=== PATIENT | female | born 1990 | race Caucasian/White ===

== ENCOUNTER 2018-04-06 15:40 | Inpatient (IN) | payer BC ==
[~2018-04-06] VITALS: Ht 167.6 cm; Wt 104.3 kg
[2018-04-06] VITALS (8 sets, daily range): BP systolic 107–131; BP diastolic 58–80
[2018-04-06 16:55] LABS: HEMATOCRIT 32.5 % (36.0-46.0); HEMOGLOBIN 10.6 G/DL (11.9-15.5); MCH 26.1 PG (29.0-34.0); MCHC 32.6 G/DL (30.0-36.0); PLATELET COUNT 244 K/uL (156-360); RBC DIS.WIDTH-CV 14.3 % (11.8-14.6); RBC DIS.WIDTH-SD 41.7 % (39-53); RED BLOOD COUNT 4.06 M/uL (3.80-5.20); WHITE BLOOD COUNT 19.4 K/uL (4.1-10.2)
[2018-04-06] MEDS ORDERED: IRON325 M1 PO (17:40)
[2018-04-06] MEDS ORDERED: PRENATAL TABLE1 EAC3 PO (17:40)
[2018-04-06 17:47] LABS: ABS NEUTROPHIL COUNT 15.3; ANISOCYTOSIS 1+; BAND NEUTROPHILS 1.7 % (0-8.0); BASOPHILS 0.9 %; EOSINOPHIL ABS CT 0.2; EOSINOPHILS 0.9 % (0-5.0); LYMPHOCYTES 10.4 % (15.0-45.0); METAMYELOCYTES 4.3 %; MICROCYTOSIS 1+; MONOCYTES 4.4 % (0-9.0); PLAT.SUFFICIENCY ADEQUATE; SEG.NEUTROPHILS 77.4 % (46.0-76.0)
[2018-04-06 19:06] LABS: AMPHETAMINE NEGATIVE (500 ng/mL); BARBITURATES NEGATIVE (200 ng/mL); BENZODIAZEPINES NEGATIVE (150 ng/mL); BUPRENORPHINE NEGATIVE (10 ng/mL); COCAINE NEGATIVE (150 ng/mL); METHADONE NEGATIVE (200 ng/mL); METHAMPHETAMINE NEGATIVE (500 ng/mL); OPIATES (MORPHINE) NEGATIVE (100 ng/mL); OXYCODONE NEGATIVE (100 ng/mL); PHENCYCLIDINE NEGATIVE (25 ng/mL); PROPOXYPHENE NEGATIVE (300 ng/mL); THC CANNABINOIDS NEGATIVE (50 ng/mL); TRICYCLIC ANTIDEPRESSANTS NEGATIVE (300 ng/mL)
[2018-04-06 23:25] LABS: PLATELET COUNT 263 K/uL (156-360)
[2018-04-06 23:27] LABS: HEMATOCRIT 25.7 % (36.0-46.0); MCH 26.6 PG (29.0-34.0); MCHC 33.1 G/DL (30.0-36.0); MCV 80.3 FL (83-99); RBC DIS.WIDTH-CV 14.4 % (11.8-14.6); RBC DIS.WIDTH-SD 41.8 % (39-53)
[2018-04-06 23:28] LABS: HEMOGLOBIN 8.5 G/DL (11.9-15.5); WHITE BLOOD COUNT 32.9 K/uL (4.1-10.2)
[2018-04-07] VITALS (9 sets, daily range): BP systolic 107–123; BP diastolic 50–64
[2018-04-07 01:35] LABS: HEMATOCRIT 24.2 % (36.0-46.0); HEMOGLOBIN 7.9 G/DL (11.9-15.5); MCV 80.7 FL (83-99)
[2018-04-07 06:04] LABS: HEMATOCRIT 23.2 % (36.0-46.0); HEMOGLOBIN 7.5 G/DL (11.9-15.5); MCH 26.5 PG (29.0-34.0); MCHC 32.3 G/DL (30.0-36.0); PLATELET COUNT 218 K/uL (156-360); RBC DIS.WIDTH-CV 14.6 % (11.8-14.6); RBC DIS.WIDTH-SD 43.6 % (39-53); RED BLOOD COUNT 2.83 M/uL (3.80-5.20)
[2018-04-07 06:50] LABS: WHITE BLOOD COUNT 32.5 K/uL (4.1-10.2)
[2018-04-07 06:53] LABS: BASOPHIL (%) 0.2 % (0-1); BASOPHIL COUNT 0.1 K/uL (0-0.1); EOSINOPHIL (%) 0 % (0-5); IMMATURE GRANULOCYTE (%) 3.6 % (0.0-0.7); LYMPHOCYTE (%) 5.5 % (15-42); LYMPHOCYTE COUNT 1.8 K/uL (1.0-2.8); MONOCYTE (%) 3.3 % (3-12); MONOCYTE COUNT 1.1 K/uL (0-0.8); NEUTROPHIL (%) 87.4 % (45-76); NEUTROPHIL COUNT 28.4 K/uL (1.8-6.4); PLAT.SUFFICIENCY ADEQUATE
[2018-04-08] VITALS (19 sets, daily range): BP systolic 100–135; BP diastolic 54–74
[2018-04-08 02:17] LABS: BASOPHIL (%) 0.1 % (0-1); EOSINOPHIL (%) 0.4 % (0-5); EOSINOPHIL COUNT 0.1 K/uL (0-0.3); HEMATOCRIT 18.4 % (36.0-46.0); HEMOGLOBIN 5.9 G/DL (11.9-15.5); IMMATURE GRANULOCYTE (%) 4.2 % (0.0-0.7); LYMPHOCYTE (%) 19.8 % (15-42); LYMPHOCYTE COUNT 4.2 K/uL (1.0-2.8); MCHC 32.1 G/DL (30.0-36.0); MCV 81.1 FL (83-99); MONOCYTE (%) 7.4 % (3-12); MONOCYTE COUNT 1.6 K/uL (0-0.8); NEUTROPHIL (%) 68.1 % (45-76); NEUTROPHIL COUNT 14.6 K/uL (1.8-6.4); PLATELET COUNT 180 K/uL (156-360); RBC DIS.WIDTH-CV 14.9 % (11.8-14.6); RBC DIS.WIDTH-SD 43.2 % (39-53); RED BLOOD COUNT 2.27 M/uL (3.80-5.20); WHITE BLOOD COUNT 21.4 K/uL (4.1-10.2)
[2018-04-08 14:22] LABS: HEMATOCRIT 24.4 % (36.0-46.0); MCH 27.6 PG (29.0-34.0); MCHC 32.8 G/DL (30.0-36.0); MCV 84.1 FL (83-99); NRBC (%) 0.1 /100 WBC (0-0); PLATELET COUNT 204 K/uL (156-360); RBC DIS.WIDTH-SD 45.6 % (39-53); WHITE BLOOD COUNT 21.7 K/uL (4.1-10.2)
[2018-04-08 22:17] LABS: HEMATOCRIT 23.4 % (36.0-46.0); HEMOGLOBIN 7.7 G/DL (11.9-15.5); MCH 27.7 PG (29.0-34.0); MCHC 32.9 G/DL (30.0-36.0); MCV 84.2 FL (83-99); PLATELET COUNT 211 K/uL (156-360); RBC DIS.WIDTH-CV 14.9 % (11.8-14.6); RBC DIS.WIDTH-SD 45.1 % (39-53); RED BLOOD COUNT 2.78 M/uL (3.80-5.20); WHITE BLOOD COUNT 20.1 K/uL (4.1-10.2)
[2018-04-08 22:27] LABS: ALBUMIN 2.6 g/dL (3.2-4.8); CHLORIDE 109 mEq/L (99-109); POTASSIUM 3.6 mEq/L (3.7-5.4); SODIUM 138 mEq/L (136-147)
[2018-04-08 22:29] LABS: GLUCOSE 139 mg/dL (70-99); TOTAL PROTEIN 4.6 g/dL (6.4-8.3)
[2018-04-08 22:31] LABS: TOTAL BILIRUBIN 0.1 mg/dL (0.0-1.0)
[2018-04-08 22:33] LABS: ALKALINE PHOSPHATASE 92 IU/L (3-129); CREATININE 0.7 mg/dL (0.6-1.3); GFR ESTIMATE (CALCULATED) > 59 mL/min/
[2018-04-08 22:34] LABS: UREA NITROGEN (BUN) 9 mg/dL (9-23)
[2018-04-08 22:35] LABS: AST (GOT) 24 IU/L (2-34)
[2018-04-08 22:36] LABS: ALT (GPT) 13 IU/L (3-49)
[2018-04-09 02:55] VITALS: BP 154/85
[2018-04-09 03:30] VITALS: BP 118/68
[2018-04-09 07:32] VITALS: BP 123/70
[2018-04-09 11:00] VITALS: BP 116/61
[2018-04-09 15:04] VITALS: BP 134/68
[2018-04-09 23:33] VITALS: BP 133/69
[2018-04-10] MEDS ORDERED: ENDOCET 5-3251 EACH PO (10:27)
[2018-04-10] MEDS ORDERED: MOTRIN600 MG PO (10:27)
== END 2018-04-10 14:55 | disposition home or self-care (01) | DRG 765 ==
LOC: LDRP-OP 15:40 → 2WEST 15:41
PROVIDERS: Obstetrics & Gynecology
DX: O41.03X0 Oligohydramnios, third trimester, not applicable or unspecified (principal); O32.1XX0 Maternal care for breech presentation, not applicable or unspecified; O72.1 Other immediate postpartum hemorrhage; O99.02 Anemia complicating childbirth; D62 Acute posthemorrhagic anemia; D50.9 Iron deficiency anemia, unspecified; O34.03 Maternal care for unspecified congenital malformation of uterus, third trimester; O34.13 Maternal care for benign tumor of corpus uteri, third trimester; D25.9 Leiomyoma of uterus, unspecified; R51 Headache; E66.3 Overweight; Z68.28 Body mass index [BMI] 28.0-28.9, adult; Z3A.38 38 weeks gestation of pregnancy; Z37.0 Single live birth
CPT/HCPCS: 70496; 80053; 85014; 85018; 85025; 85025 91; 85027; 86850; 86900; 86901; 86920; 88305; J0131; J0330; J0690; J1100; J1580; J1885; J2210; J2274; J2405; J2765; J3010; J7040; J7050; J7120; P9016; S0020